=== PATIENT | male | born 1995 | race Caucasian/White ===

== ENCOUNTER 2023-09-08 15:35 | Emergency (ER) | payer OTHER, SELFPAY ==
[2023-09-08 15:49] VITALS: BP 134/70; PULSE 91; RESP 20; TEMP 37; O2SAT 100
--- NOTE | 2023-09-08 16:14 | ED.SKABFB ---
HPI - Skin/Abscess/Foreign Bdy General Chief complaint: Skin/Abscess/Foreign Body Stated complaint: Rash/Shortness of Breath Time Seen by Provider: 09/08/23 15:55 Source: patient, RN notes reviewed and old records reviewed Mode of arrival: ambulatory Limitations: no limitations History of Present Illness HPI narrative: 27 year old male who presents to [facility] care with complaints of poison kike rash to the left side of neck and also around left eye, on left side of abdomen and on right arm for the past 2-3days. Patient reports that he was cutting trees down and thinks he was exposed to poison kike at that time. Patient reports that he has applied some Neosporin ointment to his rash. MD complaint: rash Onset (ago): day(s) (3) Location: face, neck, chest (left side of abdomen) and RUE Severity: moderate Quality: pruritic Treatments prior to arrival: other (Neosporin ointment) Related Data Allergies Allergy/AdvReac Type Severity Reaction Status Date / Time No Known Allergies Allergy Verified 09/08/23 15:46 Review of Systems Review of Systems: CONSTITUTIONAL: Denies fever, chills, or sweats. CARDIOVASCULAR: Denies chest pain, palpitations, or edema. RESPIRATORY: Denies cough or dyspnea. SKIN: Reports poison kike rash to around left side of face, left neck, to left side of abdomen, and to right forearm which is itchy MUSCULOSKELETAL: Denies joint pain or myalgia. NEUROLOGIC: Denies headache, numbness, or weakness. All systems reviewed & are unremarkable except as noted in HPI and below PMFSH Past Medical History Medical History (Updated 09/10/23 @ 07:48 by Emily Coffman NP) Fracture of left femur surgical repair Social History Social History (Updated 09/10/23 @ 07:47 by Emily Coffman NP) Smoking status: Current every day smoker Tobacco type: cigarettes Alcohol intake: unknown Substance use: unknown Gender identity (if verbalized by the patient): Male Comments At time of signature, agree with nursing past medical, surgical, social and family history. There is no relevant family history pertinent to the presenting complaint Exam Narrative: GENERAL: Well-appearing, well-nourished, and in no acute distress. HEAD: Normocephalic, atraumatic. EYES: PERRLA, conjunctivae clear, and EOMI. ENT: Mucous membranes moist. Oropharynx without edema, erythema or lesions. NECK: Supple. No lymphadenopathy CHEST: Clear to auscultation. No respiratory distress.SAO2 100% on room air HEART: Regular rate and rhythm. SKIN: Warm, dry.? Patches of erythema and edema to left side of face, left neck, left abdomen and on left forearm which is itchy no drainage noted NEURO:? Alert and oriented x3. PSYCH: Normal mood and affect Course Course Emergency Course: Patient is aware of diagnosis, understands and agrees to treatment plan.? Anticipatory guidance given.? Patient agrees to follow-up as directed and is aware of reasons to seek care at the emergency department. Portions of this record may have been created with voice recognition software Level of Care: Express Care Visit Vital Signs Vital signs: Vital Signs Temperature 37.0 C 09/08/23 15:49 Pulse Rate 91 09/08/23 15:49 Respiratory Rate 20 09/08/23 15:49 Blood Pressure 134/70 09/08/23 15:49 Pulse Oximetry 100 09/08/23 15:49 Oxygen Delivery Room Air 09/08/23 15:49 Temperature 37.0 C 09/08/23 15:49 Pulse Rate 91 09/08/23 15:49 Respiratory Rate 20 09/08/23 15:49 Blood Pressure 134/70 09/08/23 15:49 Pulse Oximetry 100 09/08/23 15:49 Oxygen Delivery Room Air 09/08/23 15:49 Reviewed MDM - Skin/Abscess/Foreign Bdy MDM Narrative Medical decision making narrative: Does not appear at this time to be erythema multiforme, bullous, SJS, TEN; no evidence at this time to suggest RMSF, endocarditis or Lyme disease; patient looks well, nontoxic and is tolerating oral intake; no neurologic signs or symptoms
[2023-09-08] MEDS: methylPREDNISolone ACETATE 80 MG/ML VIAL IM (16:23)
== END 2023-09-08 16:41 | disposition home or self-care (01) ==
PROVIDERS: Emergency Provider Registered Nurse
DX: L23.7 Allergic contact dermatitis due to plants, except food (principal); F17.210 Nicotine dependence, cigarettes, uncomplicated
CPT/HCPCS: 96372; 99213; G0463; J1010

== ENCOUNTER 2023-11-15 13:08 | Emergency (ER) | payer OTHER, SELFPAY ==
--- NOTE | ~2023-11-15 | CT_ITS ---
EXAMINATION: CT abdomen pelvis wo con DATE: 11/15/2023 14:00 INDICATION: Left lower quadrant abdominal pain for one day TECHNIQUE: Computed tomography (CT) of the abdomen and pelvis was performed without intravenous contr ast. Automated exposure control and iterative reconstruction technique were employed. Exam dose: 270 .32 mGy-cm total exam DLP. COMPARISON: None. FINDINGS: The lung bases are clear. Normal heart size. No pericardial or pleural effusion. The liver, gallbladder, bile ducts, pancreas, pancreatic duct, spleen, and adrenal glands and left ki dney are unremarkable. Smooth small right kidney with approximately 2.7 mm upper pole nonobstructing calculus. No other urin tahira tract calculus or hydroureteronephrosis of either kidney is noted. The urinary bladder, prostate gland and seminal vesicles are unremarkable. Normal caliber of the abdominal aorta. No intraperitoneal or retroperitoneal or pelvic mass lesion or adenopathy or ascites. Dilated appendix with thickened wall. Appendix measures up to 9.5 cm diameter. There is mild periappe ndiceal fat stranding. No abscess is identified. No intraperitoneal free air. Prominent posterior spurring at L1-2 and L2-3. Intramedullary pearl of the left femur. The included skeletal structures are otherwise unremarkable. IMPRESSION: Acute appendicitis Reviewed, dictated and finalized at [facility] Reviewed, dictated and finalized at [facility]. IMPRESSION: Acute appendicitis
[2023-11-15 13:08] VITALS: BP 137/88; PULSE 102; RESP 18; TEMP 36.3; O2SAT 100
[2023-11-15 13:17] VITALS: BP 137/88; PULSE 102; RESP 18; TEMP 36.3; O2SAT 100
--- NOTE | 2023-11-15 13:17 | ED.ABDPAIN ---
HPI - Abdominal Pain General Chief Complaint: Abdominal Pain Stated Complaint: abdominal pain Time Seen by Provider: 11/15/23 13:17 Source: patient Mode of arrival: EMS Limitations: no limitations History of Present Illness HPI narrative: Patient is a 28-year-old male with bilateral lower abdomen pain since last night. The pain travels from 1 side to the other side of the abdomen at different times. He has nausea without vomiting. He has no diarrhea. He made a normal bowel movement today. MD elicited complaint: abdominal pain Onset (ago): day(s) (2) Pain Consistency: constant Location: RLQ and LLQ Severity: moderate Pain scale (0-10): 4 Quality: cramping Radiation: none Migration to: no migration Exacerbating factors: nothing Relieving factors: nothing Associated symptoms: nausea Related Data Home Medications Medication Instructions Recorded Confirmed No Home Medications 11/15/23 11/15/23 Allergies Allergy/AdvReac Type Severity Reaction Status Date / Time No Known Allergies Allergy Verified 11/15/23 13:15 Review of Systems Review of Systems: All systems reviewed & are unremarkable except as noted in HPI and below Constitutional: Constitutional: Reports no additional constitutional complaints Eyes: Eyes: Reports no additional eye complaints ENT: Reports system reviewed and no additional complaints, except as documented Cardiovascular: Cardiovascular: Reports no additional cardiovascular complaints Respiratory: Respiratory: Reports no additional respiratory complaints Gastrointestinal: Gastrointestinal: Reports no additional gastrointestinal complaints Genitourinary: Genitourinary: Reports no additional male genitourinary complaints Musculoskeletal: Musculoskeletal: Reports no additional musculoskeletal complaints Integumentary/Breasts: Skin/Breast: Reports system reviewed and no additional complaints, except as docu Neurologic: Reports system reviewed and no additional complaints, except as documented Psychiatric: Psychiatric: Reports no additional psychiatric complaints Endocrine: Endocrine: Reports no additional endocrine complaints Hematologic/Lymphatic: Hematologic/Lymphatic: Reports no additional hematologic/lymphatic complaints Allergic/Immunologic: Allergic/Immunologic: Reports no additional allergic/immunologic complaints [facility] Past Medical History Medical History Fracture of left femur surgical repair Social History Social History Smoking status: Current every day smoker Tobacco type: cigarettes Alcohol intake: unknown Substance use: unknown Gender identity (if verbalized by the patient): Male Exam Const: General: healthy appearing Nutritional Appearance: well nourished Orientation/consciousness: patient oriented x3 HENMT: Head: normal to inspection Ears: external ears normal Face/Nose/Sinus: Normal external nose present Eyes: Conjunctivae: conjunctivae normal Pupils: Equal, round and reactive pupils present EOM: EOMs intact bilaterally Neck: Neck: normal visual inspection Chest: Chest palpation & inspection: normal inspection of the chest Resp: Effort & Inspection: normal respiratory effort and not labored Auscultation: clear to auscultation bilaterally and no crackles Cardio: Rate: regular rate Rhythm: regular rhythm Heart sounds: no murmurs GI: Inspection: non-distended GI Palp: Yes Soft to palpation, Yes Tenderness to palpation present (GI) ( Left lower quadrant and right lower quadrant), No Guarding due to palpation present (GI), No Rigid due to palpation, No Hernia present, No Palpable mass present and No Rebound tenderness present Auscultation: bowels sounds not normal and Hypoactive bowel sounds present : General: Yes bladder normal to palpation Back/Spine/Pelvis: Back: no CVA tenderness Skin: General skin exam: normal
[2023-11-15 14:09] LABS: Basophils Absolute Auto 0.03 K/mm3 (0.00-0.10); Basophils Percent Auto 0.2 % (0.0-1.0); Eosinophils Absolute Auto 0.06 K/mm3 (0.02-0.50); Eosinophils Percent Auto 0.3 % (1.0-6.0); Hematocrit 42.9 % (40.0-54.0); Hemoglobin 14.2 g/dL (14.0-18.0); Immature Granulocyte Absolute 0.07 K/mm3 (0.00-0.00); Immature Granulocyte Percent A 0.4 % (0.0-0.0); Lymphocytes Absolute Auto 1.62 K/mm3 (1.10-4.50); Lymphocytes Percent Auto 8.8 % (18.0-42.0); Mean Corpuscular HGB Conc 33.1 g/dL (32-36); Mean Corpuscular Hemoglobin 29.5 pg (27.0-31.0); Mean Corpuscular Volume 89.2 fL (78.0-102.0); Mean Platelet Volume 8.3 fl (8.7-11.0); Monocytes Absolute Auto 1.03 K/mm3 (0.10-0.90); Monocytes Percent Auto 5.6 % (2.0-11.0); Neutrophils Absolute Auto 15.54 K/mm3 (1.70-7.20); Neutrophils Percent Auto 84.7 % (50.0-70.0); Platelet Count Result 410 K/mm3 (150-420); Red Blood Count 4.81 M/mm3 (4.70-6.10); Red Cell Distribution Width 12.9 % (11.6-14.4); White Blood Count 18.4 K/mm3 (4.8-10.8)
[2023-11-15 14:42] LABS: Add Urine Microscopic? NO; Appearance Urine Clear (Clear); Bilirubin Urine Negative (Negative); Blood Urine Negative (Negative); Color Urine Yellow (Yellow); Glucose Urine UA Negative (Negative); Ketones Urine Negative (Negative); Leukocyte Esterase Ur Negative LEU/UL (Negative); Nitrate Urine Negative (Negative); Protein Urine Negative (Negative); Urobilinogen Urine 0.2 mg/dL (0.2-1.0)
[2023-11-15 15:01] LABS: Alanine Aminotransferase 44 U/L (6-50); Albumin Level 4.3 g/dL (3.5-5.1); Alkaline Phosphatase 84 U/L (38-126); Anion Gap 3 mmol/L (4-12); Aspartate Amino Transferase 34 U/L (17-59); Bilirubin,Total 0.4 mg/dL (0.2-1.3); Blood Urea Nitrogen 13 mg/dL (9-20); Calcium 9.2 mg/dL (8.4-10.2); Carbon Dioxide 31 mmol/L (22-30); Chloride 97 mmol/L (98-107); Estimated CRCL calculation 113 ml/min; Estimated Glomerular Filt Rate > 60; Glucose 147 mg/dL (65-110); Lipase 83 U/L (23-300); Osmolality Calculated 275 mOsm/kg (285-295); Potassium 3.8 mmol/L (3.4-5.0); Sodium 131 mmol/L (137-145)
[2023-11-15 15:12] LABS: Lactic Acid Reflex 2.1 mmol/L (0.7-2.0)
[2023-11-15] MEDS: SODIUM CHLORIDE 0.9% IV 1,000 ML 999 ML IV CONT (15:15)
[2023-11-15 15:23] VITALS: BP 119/62; PULSE 63; RESP 16; TEMP 36.7; O2SAT 100
[2023-11-15] MEDS: PIPERACILLN/TAZ 3.375GM/NS50ML 3.375 GM/50 ML BAG IVPB (15:37)
[2023-11-15 16:02] VITALS: BP 128/77; PULSE 93; RESP 16; O2SAT 100
[2023-11-15 16:15] VITALS: BP 112/65; PULSE 67; RESP 16; TEMP 36.8; O2SAT 99
[2023-11-15 17:06] LABS: Reflex Lactic Acid Yes or No Add Lactic
--- NOTE | 2023-11-22 13:57 | PC.NURSE ---
Final blood culture report: No growth after 5 days, no further action or treatment needed at this time.
== END 2023-11-15 16:15 | disposition short-term general hospital (02) ==
PROVIDERS: Emergency Provider Emergency Medicine
DX: K35.80 Unspecified acute appendicitis (principal); F17.210 Nicotine dependence, cigarettes, uncomplicated
CPT/HCPCS: 36415; 74176; 80053; 81003; 83605; 83690; 85025; 87040; 96365; 99285; J2543; J7030

== ENCOUNTER 2023-11-15 16:54 | Observation (INO) | payer OTHER, SELFPAY ==
[2023-11-15] VITALS (11 sets, daily range): BP systolic 112–148; BP diastolic 71–99; PULSE 77–105; RESP 8–22; TEMP 36.3–36.6; O2SAT 99–100; BMI 23.8
--- NOTE | 2023-11-15 17:11 | ADMGEN ---
This patient, Robert Escamilla, was admitted to 3 [facility] Surg Room 330-01. Patient/family oriented to hospital policies and general routines including ID bracelet, bed and alarms, visiting hours, pain management, procedures, bathroom and other care routines, personal items, smoking policy, room service/diet, and visiting hours. Information on how to activate the Rapid Response Team has been discussed. Patient/Family are encouraged to report perceived risks to care and to ask questions if they do not understand what they are told or what they should do. Report from Makenzie in the [facility].
--- NOTE | 2023-11-15 17:37 | PM.SD2 ---
Same Day Admit/Disch: [facility] History of Present Illness Chief complaint: appendicitis Narrative: Robert Escamilla is a 28 year old male who about 10:00 last night began having abdominal pain on both sides of the mid abdomen. The pain was persistent and occasionally had some nausea but no vomiting. He also reports that he had some chills. The pain later moved to the lower abdomen where, now, it is mostly in the left suprapubic area. He notices increased pain when he moves. He was seen in the emergency room at [facility] [place], [place] in [place] and was [place] [id number]. He had lower abdominal tenderness on both the right and the left sides. CT scan of the abdomen and pelvis was done and showed early acute appendicitis. There was no evidence of a ruptured appendix or an abscess. He transferred here to [facility]. After evaluation, he is going to surgery this evening for appendectomy. [facility] Past Medical History Medical History Fracture of left femur surgical repair Smoker Social History Social History Smoking packs per day: 0.5 Smoking cigarettes per day: 10.0 Smoking status: Current every day smoker Tobacco type: cigarettes Alcohol intake: never Substance use: never Do You Feel Safe in your Home?: Yes Lack of Transportation: YES Lack of Food: Sometimes True Current Housing: I Have Housing Concerned About Future Housing: No Difficulty Paying Gas/Electric Bills: YES Difficulty Paying for Meds: No Currently Unemployed: YES Education: Don't Know Difficulty w/ Childcare or Family Care: No Gender identity (if verbalized by the patient): Male Spiritual care concerns: No Same Day Admit/Disch: Med Pre-admit Medications Home Medications Medication Instructions Recorded Confirmed Type No Home Medications 11/15/23 11/15/23 History Review of Systems Review of Systems All systems reviewed & are unremarkable except as noted in HPI and below (HPI) Exam Const: General: cooperative, comfortable, no acute distress, alert, awake, ill appearing and tired appearing Orientation/consciousness: patient oriented x3 and No confusion HENMT: Head: normocephalic and atraumatic Eyes: Conjunctivae: conjunctivae normal Pupils: Equal, round and reactive pupils present EOM: EOMs intact bilaterally Neck: Neck: normal visual inspection, no lymphadenopathy and nontender Resp: Effort & Inspection: normal respiratory effort Auscultation: clear to auscultation bilaterally Cardio: Rate: regular rate Rhythm: regular rhythm Heart sounds: no gallops, no murmurs and no rubs GI: Inspection: non-distended GI Palp: Yes Soft to palpation, No Tenderness to palpation present (GI), No Hepatomegaly present and No Splenomegaly present Skin: Lesions: no lesions Rashes: no rashes Neuro: General: no focal motor deficits and CN's II-XI intact bilaterally Cranial nerves: Yes Equal, round and reactive pupils present, Yes Bilaterally intact EOM present, Yes facial symmetry and Yes Midline tongue present Speech: normal speech Motor exam (neuro): 5/5 motor strength present throughout and Motor abnormalities not present Extrem: General: no clubbing, cyanosis or edema and edema Psych: Affect: normal affect Thought process: Normal thought process present Insight: Good insight present (Psych) DS: Data Imaging Attestation: I personally reviewed and interpreted this imaging study as follows: (CT scan abdomen and pelvis) My impression: Retrocecal acute appendicitis Radiologist's impression: Acute appendicitis DS: Summary Time Spent with Patient Time attestation: Total time spent providing and/or coordinating discharge services: DS: Admitting Diagnosis Discharge Date November 15, 2023 Admitting Diagnosis Acute appendicitis-I discussed surgical versus medical treatment for appendicitis. I recommended laparoscopic appe
--- NOTE | 2023-11-15 17:45 | WPDANESEPP ---
Anes - Eval Pre Procedure Procedure: Laparoscopic appendectomy Date/Time: 11/15/23 17:45 Surgeon: Naun Pre Op Diagnosis: appendicitis Patient Data Age: 28 Gender: M Height: 1.7 m Weight: 69 kg Last Vital Signs Pulse Ox 100 11/15/23 17:32 O2 Del Method Room Air 11/15/23 17:32 Allergies Allergy/AdvReac Type Severity Reaction Status Date / Time No Known Allergies Allergy Verified 11/15/23 17:05 Home Medications Medication Instructions Recorded Confirmed Type No Home Medications 11/15/23 11/15/23 History Patient hx anesthesia problems: none Family hx anesthesia problems: none Results Review: All pre-operative results and documents have been reviewed as part of the pre-operative evaluation. [facility] Past Medical History Medical History Fracture of left femur surgical repair Seizures Smoker Social History Social History Smoking packs per day: 0.5 Smoking cigarettes per day: 10.0 Smoking status: Current every day smoker Tobacco type: cigarettes Alcohol intake: never Substance use: never Do You Feel Safe in your Home?: Yes Lack of Transportation: YES Lack of Food: Sometimes True Current Housing: I Have Housing Concerned About Future Housing: No Difficulty Paying Gas/Electric Bills: YES Difficulty Paying for Meds: No Currently Unemployed: YES Education: Don't Know Difficulty w/ Childcare or Family Care: No Gender identity (if verbalized by the patient): Male Spiritual care concerns: No Exam Day of Procedure 11/15/23 17:45 Patient weight: normal
--- NOTE | 2023-11-15 17:48 | WPDHPUPDATE1 ---
History and Physical Update Update Date/Time: 11/15/23 17:48 History and Physical has been reviewed, including an updated exam of the patient. There are NO changes in the patient's condition. Risks, benefits, and alternatives have been discussed and questions answered. Patient agrees to proceed with procedure.
--- NOTE | 2023-11-15 18:11 | PC.NURSE ---
To OR per [ Erlinda], IV [ ]. Report given to [ANNIAJA
--- NOTE | 2023-11-15 18:23 | P.PNAN_ITS ---
Anes - Initial Pre Proc Eval Procedure: Operation Date: 11/15/23 18:30 Proposed Procedures p Laparoscopic Appendectomy - Duarte Magallon MD Date/Time: 11/15/23 18:23 Surgeon: Duarte Magallon MD Pre Op Diagnosis: appendicitis Patient Data Age: 28 Gender: M Height: 1.7 m Weight: 69 kg Last Vital Signs Temp 36.3 C L 11/15/23 17:00 Pulse 97 11/15/23 17:00 Resp 20 11/15/23 17:00 BP 139/78 11/15/23 17:00 Pulse Ox 100 11/15/23 17:32 O2 Del Method Room Air 11/15/23 17:32 Allergies Allergy/AdvReac Type Severity Reaction Status Date / Time No Known Allergies Allergy Verified 11/15/23 17:05 Home Medications Medication Instructions Recorded Confirmed Type No Home Medications 11/15/23 11/15/23 History Patient hx anesthesia problems: none Family hx anesthesia problems: none Results Review: All pre-operative results and documents have been reviewed as part of the pre- operative evaluation. [facility] Past Medical History Medical History Fracture of left femur surgical repair Smoker Social History Social History Smoking packs per day: 0.5 Smoking cigarettes per day: 10.0 Smoking status: Current every day smoker Tobacco type: cigarettes Alcohol intake: never Substance use: never Do You Feel Safe in your Home?: Yes Lack of Transportation: YES Lack of Food: Sometimes True Current Housing: I Have Housing Concerned About Future Housing: No Difficulty Paying Gas/Electric Bills: YES Difficulty Paying for Meds: No Currently Unemployed: YES Education: Don't Know Difficulty w/ Childcare or Family Care: No Gender identity (if verbalized by the patient): Male Spiritual care concerns: No Anes - Eval Final PreProcedure Day of Procedure 11/15/23 18:23 Patient weight: normal Heart: regular rate and rhythm Lungs: clear to auscultation Airway: Mallampati scale class II Neurological: alert and oriented Last oral intake: >/= 8 hours ASA classification: III Emergent: no Anesthetic plan: proceed Anesthesia type and monitoring: general ETT and standard monitoring Results Review: All pre-operative results and documents have been reviewed as part of the pre- operative evaluation. Informed Consent: The patient's anesthetic plan and its attendant risks and benefits were discussed with the patient/family/POA. Questions were solicited and answers provided to the satisfaction of the patient/family/POA.
[2023-11-15] MEDS: ceFAZolin 2 GM/D5W 50 ML 2 GM/50 ML BAG IVPB (18:27)
[2023-11-15] MEDS: BUPIVACAINE/EPINEPHRINE 0.5% 50 ML VIAL 20 ML INFILTRATE (18:51)
--- NOTE | 2023-11-15 19:08 | P.OP_ITS ---
Procedure Note - Detailed Date of Procedure 11/15/23 Pre-op Diagnosis appendicitis Post-op Diagnosis Same Procedure Performed Laparoscopic appendectomy Surgeon Duarte Magallon MD [employer] [facility] Anesthesia General and Local Indications The patient developed abdominal pain about 10:00 a.m. last night. It was in the mid abdomen on both sides when it started and then moved to the lower abdomen but continued to be on both sides or in the suprapubic area. He went to the emergency room in [place] where he was noted to have leukocytosis and tenderness in both lower quadrants. CT scan showed acute appendicitis. Findings Acute unruptured appendicitis Description of Procedure Patient was taken to surgery and induced into general anesthesia. The abdomen is prepped and draped. Trocars were placed in the usual fashion using applied gokit optical trocars and a 5 mm camera. Patient was placed in Trendelenburg with the right-side elevated. The appendix was found easily but was retroperitoneal. It was elevated and carefully dissected from the peritoneum and the mesoappendix was carefully dissected, cauterized, and divided. The appendiceal artery in particular was thoroughly cauterized and divided. Eventually we dissected down to the base of the appendix. The base the appendix was skeletonized. A Vicryl endoloop was used to ligate the appendix at its base. The appendix was amputated just above the ligature and the mucosa of the appendiceal stump was cauterized. The appendix was placed immediately in an Endo-Catch bag and retrieved through the 10 11 left lower quadrant trocar site without difficulty. We replaced the trocar and then reviewed the areas of dissection as well as the appendiceal stump. All looked good with no evidence of bleeding or other problems. We then evacuated CO2 and removed the trocar sleeves. Skin wounds were closed with subcuticular 4-0 Monocryl skin suture. The wounds were dressed with Exofin surgical adhesive. Patient was awakened and taken to recovery in good condition. Sponge needle counts were correct x2. Estimated Blood Loss -5 Drains No Packing No Pathology Yes (Appendix) Complications None Condition Stable Disposition PACU [facility] Billing Surgery - Charge Forward: Surgery Billing (Laparoscopic appendectomy)
[2023-11-15] MEDS: LACTATED RINGERS 1,000 ML 30 ML IV CONT (19:17)
[2023-11-15] MEDS: LACTATED RINGERS 1,000 ML 100 ML IV CONT (21:08)
--- NOTE | 2023-11-15 21:42 | PC.NURSE ---
11/15/23@ 2032, patient returned from procedure from PACU to 3 medical surgical unit to room 330-1. Discharge orders in place, pt expressed he feels fine to go home tonight. Was able to tolerate sandwich and soda without nausea nor upset stomach. Discharge instructions given to patient and discussed with grandfather also. Patient discharged from unit @2142. Driven home by grandfather.
== END 2023-11-15 21:43 | disposition home or self-care (01) ==
PROVIDERS: Admitting Provider Surgery; Visit Provider Surgery
PROC: 0DTJ4ZZ Resection of Appendix, Percutaneous Endoscopic Approach (ICD-10-PCS; CPT 44970; principal; 2023-11-15 18:30)
DX: K35.80 Unspecified acute appendicitis (principal); F17.210 Nicotine dependence, cigarettes, uncomplicated
CPT/HCPCS: 44970; 88304; G0378; J0330; J0690; J1100; J2405; J2704; J3010; J7030; J7120